=== PATIENT | male | born 1950 | race Caucasian/White ===

== ENCOUNTER 2022-12-02 21:17 | Emergency (ER) | payer OTHER ==
[~2022-12-02] VITALS: Ht 157.5 cm; Wt 81.7 kg
[2022-12-03] MEDS ORDERED: FLUO10 (00:29)
[2022-12-03] MEDS ORDERED: LIDO700A20 TOP (00:41)
[2022-12-03] MEDS ORDERED: CYCL10 PO (00:41)
== END 2022-12-03 01:06 | disposition home or self-care (01) ==
LOC: ER 21:17
DX: R07.81 Pleurodynia (principal); R07.89 Other chest pain; W19.XXXA Unspecified fall, initial encounter
CPT/HCPCS: 71046; 99283-25; A9270